=== PATIENT | female | born 1945 | race Caucasian/White ===

== ENCOUNTER 2017-02-04 17:35 | Inpatient (IN) | payer OTHER ==
[~2017-02-04] VITALS: Ht 170.2 cm; Wt 90.8 kg
[~2017-02-04 17:35] MED LIST: ADVAIR 250/501 DISK IH; ASPIRIN81 M2 PO; FISH OIL 1,0001 EAC7 PO; FUROSEMIDE20 MG PO; HYDROCODON-ACE1 EAC7 PO; INCRUSE ELLI62.5 MCG IH; IRON325 MG PO; LIPITOR40 MG PO; LISINOPRIL20 MG PO; LO-DOSE ASPIRIN81 M2 PO; METFORMIN HCL500 MG PO; NEURONTIN300 MG PO; NITROSTAT0.4 MG SL; ONE DAILY1 EAC3 PO; PLAVIX75 MG PO; TYLENOL EXTRA500 MG PO; VENTOLIN HFA18 GM IH
[2017-02-04 19:04] LABS: HEMATOCRIT 29.5 % (36.0-46.0); MCH 18.4 PG (29.0-34.0); MCHC 27.1 G/DL (30.0-36.0); MEAN PLAT.VOLUME 9.2 uM^3 (9.5-12.4); PLATELET COUNT 501 K/uL (156-360); RBC DIS.WIDTH-CV 20.2 % (11.8-14.6); RBC DIS.WIDTH-SD 49.2 % (39-53); RED BLOOD COUNT 4.34 M/uL (3.80-5.20); WHITE BLOOD COUNT 12.1 K/uL (4.1-10.2)
[2017-02-04 19:13] LABS: CHLORIDE 107 mEq/L (99-109); POTASSIUM 4.5 mEq/L (3.7-5.4); SODIUM 139 mEq/L (136-147)
[2017-02-04 19:15] LABS: GLUCOSE 104 mg/dL (70-99)
[2017-02-04 19:16] LABS: ANION GAP 10 MEQ/L (2-14)
[2017-02-04 19:19] LABS: GFR ESTIMATE (CALCULATED) > 59 mL/min/; TROP-I INTERPRETATION NEGATIVE; TROPONIN-I 0.04 ng/mL (0.0-0.30)
[2017-02-04 19:20] LABS: UREA NITROGEN (BUN) 16 mg/dL (9-23)
[2017-02-04 22:12] LABS: IRON 15 MCG/DL (35-150)
[2017-02-04 22:47] LABS: FERRITIN 9 NG/ML (10-291)
[2017-02-04 23:16] VITALS: BP 127/58
[2017-02-04 23:36] VITALS: BP 146/72
[2017-02-04] MEDS ORDERED: VITAMIN B-12500 MC5 SL (23:43)
[2017-02-05] VITALS (8 sets, daily range): BP systolic 96–148; BP diastolic 45–96
[2017-02-05 08:40] LABS: POINT-OF-CARE METER ID UU14188625
[2017-02-05 08:45] LABS: HEMATOCRIT 29.5 % (36.0-46.0); MCH 19.6 PG (29.0-34.0); MCHC 28.1 G/DL (30.0-36.0); MCV 69.6 FL (83-99); RBC DIS.WIDTH-CV 21.7 % (11.8-14.6); RBC DIS.WIDTH-SD 52.7 % (39-53); RED BLOOD COUNT 4.24 M/uL (3.80-5.20); WHITE BLOOD COUNT 9.2 K/uL (4.1-10.2)
[2017-02-05 08:47] LABS: ALKALINE PHOSPHATASE 83 IU/L (3-129); ANION GAP 9 MEQ/L (2-14); CHLORIDE 105 MEQ/L (99-109); GFR ESTIMATE (CALCULATED) > 59 mL/min/; GLUCOSE 109 mg/dL (70-99); POTASSIUM 4.1 MEQ/L (3.7-5.4); SAMPLE HEMOLYSIS CHECK 0; SAMPLE ICTERIC CHECK 0; SAMPLE LIPEMIA CHECK 0; SODIUM 140 MEQ/L (136-147); TOTAL BILIRUBIN 1.1 MG/DL (0.0-1.0); TROP-I INTERPRETATION NEGATIVE; TROPONIN-I 0.05 ng/mL (0.0-0.30); UREA NITROGEN (BUN) 14 mg/dL (9-23)
[2017-02-05 10:14] LABS: ADD MIUA? NO; BILIRUBIN NEGATIVE; BLOOD NEGATIVE; COLOR COLORLESS ((YELLOW)); GLUCOSE (STRIP) NEGATIVE; KETONES NEGATIVE; LEUKOCYTES NEGATIVE; NITRITE NEGATIVE; PROTEIN (STRIP) NEGATIVE; SPECIFIC GRAVITY 1.005 (1.000-1.030); UCUL ADDED? NO; UROBILINOGEN 0.2 MG/DL (0.2-1.0)
[2017-02-05 11:33] LABS: MEAN PLAT.VOLUME 9.2 uM^3 (9.5-12.4); PLATELET COUNT 471 K/uL (156-360)
[2017-02-05 14:58] LABS: TROP-I INTERPRETATION NEGATIVE; TROPONIN-I 0.06 ng/mL (0.0-0.30)
[2017-02-06] VITALS (10 sets, daily range): BP systolic 90–134; BP diastolic 52–67
[2017-02-06 07:16] LABS: ANION GAP 10 MEQ/L (2-14); CHLORIDE 102 MEQ/L (99-109); GFR ESTIMATE (CALCULATED) 58 mL/min/; GLUCOSE 108 mg/dL (70-99); POTASSIUM 4.1 MEQ/L (3.7-5.4); SAMPLE HEMOLYSIS CHECK 0; SAMPLE ICTERIC CHECK 0; SAMPLE LIPEMIA CHECK 0; SODIUM 139 MEQ/L (136-147); UREA NITROGEN (BUN) 19 mg/dL (9-23)
[2017-02-06 12:27] LABS: POINT-OF-CARE METER ID UU14188625
[2017-02-06 21:25] LABS: POINT-OF-CARE METER ID UU14174225
[2017-02-07] VITALS (8 sets, daily range): BP systolic 106–131; BP diastolic 54–84
[2017-02-07 11:32] LABS: BASOPHIL COUNT 0.1 K/uL (0-0.1); EOSINOPHIL (%) 2.7 % (0-5); EOSINOPHIL COUNT 0.4 K/uL (0-0.3); HEMATOCRIT 33.4 % (36.0-46.0); IMMATURE GRANULOCYTE (%) 0.9 % (0.0-0.7); IMMATURE GRANULOCYTE COUNT 0.1 K/uL; INSTRUMENT ABS NEUTROPHIL CT 9.9 K/uL; LYMPHOCYTE COUNT 1.2 K/uL (1.0-2.8); MCH 19.8 PG (29.0-34.0); MCHC 27.8 G/DL (30.0-36.0); MCV 71.1 FL (83-99); MONOCYTE (%) 8.1 % (3-12); NEUTROPHIL (%) 78.1 % (45-76); NEUTROPHIL COUNT 9.9 K/uL (1.8-6.4); NRBC (%) 0.4 /100 WBC (0-0); PLATELET COUNT 505 K/uL (156-360); RBC DIS.WIDTH-CV 22.4 % (11.8-14.6); RBC DIS.WIDTH-SD 53.5 % (39-53); WHITE BLOOD COUNT 12.7 K/uL (4.1-10.2)
[2017-02-07 11:36] LABS: ANION GAP 10 MEQ/L (2-14); CHLORIDE 101 MEQ/L (99-109); GFR ESTIMATE (CALCULATED) > 59 mL/min/; GLUCOSE 122 mg/dL (70-99); POTASSIUM 4.3 MEQ/L (3.7-5.4); SAMPLE HEMOLYSIS CHECK 0; SAMPLE ICTERIC CHECK 0; SAMPLE LIPEMIA CHECK 0; SODIUM 136 MEQ/L (136-147); UREA NITROGEN (BUN) 20 mg/dL (9-23)
[2017-02-07 16:10] LABS: POINT-OF-CARE METER ID UU14174225
[2017-02-07 22:07] LABS: POINT-OF-CARE METER ID UU14174225
[2017-02-08 04:15] VITALS: BP 117/60
[2017-02-08 07:17] VITALS: BP 114/64
[2017-02-08 07:35] LABS: BASOPHIL COUNT 0.1 K/uL (0-0.1); EOSINOPHIL (%) 4.9 % (0-5); EOSINOPHIL COUNT 0.6 K/uL (0-0.3); HEMATOCRIT 34.7 % (36.0-46.0); IMMATURE GRANULOCYTE (%) 0.6 % (0.0-0.7); IMMATURE GRANULOCYTE COUNT 0.1 K/uL; INSTRUMENT ABS NEUTROPHIL CT 8.2 K/uL; LYMPHOCYTE COUNT 1.3 K/uL (1.0-2.8); MCH 19.6 PG (29.0-34.0); MCHC 27.1 G/DL (30.0-36.0); MCV 72.4 FL (83-99); MEAN PLAT.VOLUME 9.7 uM^3 (9.5-12.4); MONOCYTE (%) 9.3 % (3-12); MONOCYTE COUNT 1.1 K/uL (0-0.8); NEUTROPHIL (%) 72.8 % (45-76); NEUTROPHIL COUNT 8.2 K/uL (1.8-6.4); PLATELET COUNT 477 K/uL (156-360); RBC DIS.WIDTH-CV 23.8 % (11.8-14.6); RBC DIS.WIDTH-SD 55.4 % (39-53); RED BLOOD COUNT 4.79 M/uL (3.80-5.20); WHITE BLOOD COUNT 11.3 K/uL (4.1-10.2)
[2017-02-08 07:58] LABS: ANION GAP 11 MEQ/L (2-14); CHLORIDE 105 MEQ/L (99-109); GFR ESTIMATE (CALCULATED) > 59 mL/min/; GLUCOSE 90 mg/dL (70-99); POTASSIUM 4.2 MEQ/L (3.7-5.4); SAMPLE HEMOLYSIS CHECK 0; SAMPLE ICTERIC CHECK 0; SAMPLE LIPEMIA CHECK 0; SODIUM 139 MEQ/L (136-147); UREA NITROGEN (BUN) 19 mg/dL (9-23)
[2017-02-08 11:00] VITALS: BP 104/64
[2017-02-08] MEDS ORDERED: FERROUS SULFAT325 MG PO (11:01)
[2017-02-08] MEDS ORDERED: COLACE100 MG PO (11:05)
[2017-02-08 11:27] LABS: POINT-OF-CARE METER ID UU14188625
== END 2017-02-08 11:55 | disposition home or self-care (01) | DRG 812 ==
LOC: EME 17:35 → EDOF 02-05 00:17 → 5SOUTH 02-05 00:17
PROVIDERS: Emergency Medicine; Hospitalist; Internal Medicine; Physician Assistant Medical
PROC: 30233N1 Transfusion of Nonautologous Red Blood Cells into Peripheral Vein, Percutaneous Approach (ICD-10-PCS; principal; 2017-02-04)
DX: D50.9 Iron deficiency anemia, unspecified (principal); I42.9 Cardiomyopathy, unspecified; I50.22 Chronic systolic (congestive) heart failure; E11.9 Type 2 diabetes mellitus without complications; J44.9 Chronic obstructive pulmonary disease, unspecified; R05 Cough; R06.00 Dyspnea, unspecified; I25.10 Atherosclerotic heart disease of native coronary artery without angina pectoris; I35.0 Nonrheumatic aortic (valve) stenosis; I25.5 Ischemic cardiomyopathy; I25.2 Old myocardial infarction; Z87.891 Personal history of nicotine dependence; Z95.5 Presence of coronary angioplasty implant and graft
CPT/HCPCS: 71020; 71250; 80048; 80053; 81003; 82728; 82948; 83540; 83880; 84466; 84484; 85025; 85027; 86850; 86900; 86901; 86920; 93005; 93306; 93970; 94640; 94640 76; 94760; 94799; 99202; 99281; 99285; J1815; J1940; J7050; P9016; Q0138

== ENCOUNTER 2017-02-21 11:32 | Inpatient (IN) | payer OTHER ==
[~2017-02-21] VITALS: Ht 170.2 cm; Wt 83.7 kg
[~2017-02-21 11:32] MED LIST changes: +COLACE100 MG PO; +FERROUS SULFAT325 MG PO; +VITAMIN B-12500 MC5 SL
[2017-02-21 13:03] LABS: EOSINOPHIL (%) 0 % (0-5); HEMATOCRIT 37.7 % (36.0-46.0); IMMATURE GRANULOCYTE (%) 0.7 % (0.0-0.7); IMMATURE GRANULOCYTE COUNT 0.1 K/uL; INSTRUMENT ABS NEUTROPHIL CT 16.5 K/uL; LYMPHOCYTE COUNT 0.4 K/uL (1.0-2.8); MCH 22.2 PG (29.0-34.0); MCHC 28.9 G/DL (30.0-36.0); MCV 76.6 FL (83-99); MEAN PLAT.VOLUME 9.9 uM^3 (9.5-12.4); MONOCYTE (%) 5.5 % (3-12); NEUTROPHIL (%) 91.2 % (45-76); NEUTROPHIL COUNT 16.5 K/uL (1.8-6.4); PLATELET COUNT 401 K/uL (156-360); RBC DIS.WIDTH-CV 31.2 % (11.8-14.6); RBC DIS.WIDTH-SD 80.3 % (39-53); RED BLOOD COUNT 4.92 M/uL (3.80-5.20)
[2017-02-21 13:04] LABS: WHITE BLOOD COUNT 18.1 K/uL (4.1-10.2)
[2017-02-21 13:11] LABS: CHLORIDE 105 mEq/L (99-109); POTASSIUM 4.4 mEq/L (3.7-5.4); SODIUM 137 mEq/L (136-147)
[2017-02-21 13:13] LABS: GLUCOSE 189 mg/dL (70-99)
[2017-02-21 13:14] LABS: ANION GAP 15 MEQ/L (2-14)
[2017-02-21 13:17] LABS: GFR ESTIMATE (CALCULATED) 58 mL/min/
[2017-02-21 13:18] LABS: UREA NITROGEN (BUN) 20 mg/dL (9-23)
[2017-02-21 13:22] LABS: TROP-I INTERPRETATION NEGATIVE; TROPONIN-I 0.21 ng/mL (0.0-0.30)
[2017-02-21] MEDS ORDERED: CYANOCOBALAM1000 MCG PO (16:48)
[2017-02-21] MEDS ORDERED: COLACE100 MG PO (16:49)
[2017-02-21] MEDS ORDERED: FUROSEMIDE40 MG PO (16:49)
[2017-02-21 17:18] LABS: D-DIMER ELISA 1.06 mg/L FEU (< 0.57)
[2017-02-21 22:00] LABS: BASE EXCESS -5.8 mEq/L (-3 to +3); CARBOXY HGB 2.3 % (0-5); METHEMOGLOBIN 1.2 % (0-1.5); PCO2 29 mm Hg (35-45); PO2 78 mm Hg (80-100)
[2017-02-21 22:01] LABS: COMMENTS - BLOOD GASES C+A+; DEVICE NC; O2 FLOW 4 L/MIN; SITE RR; TOTAL RESP RATE 22 resp/min
[2017-02-21 22:30] VITALS: BP 123/57
[2017-02-21 22:47] VITALS: BP 123/57
[2017-02-21 23:00] VITALS: BP 103/55
[2017-02-21 23:45] VITALS: BP 110/52
[2017-02-22] VITALS (30 sets, daily range): BP systolic 0–160; BP diastolic 0–90
[2017-02-22 00:04] LABS: METH RESISTANT S AUREUS PCR NEGATIVE (NEGATIVE)
[2017-02-22 00:44] LABS: PROBE CHECK PASS; SPECIMEN PROCESSING CONTROL PASS
[2017-02-22 06:22] LABS: HEMATOCRIT 34.2 % (36.0-46.0); MCH 22.1 PG (29.0-34.0); MCHC 28.4 G/DL (30.0-36.0); MCV 77.9 FL (83-99); MEAN PLAT.VOLUME 9.7 uM^3 (9.5-12.4); PLATELET COUNT 355 K/uL (156-360); RBC DIS.WIDTH-CV 30.6 % (11.8-14.6); RED BLOOD COUNT 4.39 M/uL (3.80-5.20); WHITE BLOOD COUNT 21.3 K/uL (4.1-10.2)
[2017-02-22 06:48] LABS: ANION GAP 12 MEQ/L (2-14); CHLORIDE 107 MEQ/L (99-109); GFR ESTIMATE (CALCULATED) > 59 mL/min/; GLUCOSE 169 mg/dL (70-99); POTASSIUM 4.3 MEQ/L (3.7-5.4); SAMPLE HEMOLYSIS CHECK 0; SAMPLE ICTERIC CHECK 0; SAMPLE LIPEMIA CHECK 0; SODIUM 140 MEQ/L (136-147); UREA NITROGEN (BUN) 21 mg/dL (9-23)
[2017-02-22 11:45] LABS: POINT-OF-CARE METER ID UU13113731
[2017-02-22 15:25] LABS: POINT-OF-CARE METER ID UU14174217
[2017-02-22 15:31] LABS: BASE EXCESS -6.3 mEq/L (-3 to +3); BICARBONATE 17.1 mEq/L (22-26); CARBOXY HGB 2.5 % (0-5); METHEMOGLOBIN 1.7 % (0-1.5); PCO2 27 mm Hg (35-45); pH 7.41 (7.35-7.45)
[2017-02-22 15:32] LABS: COMMENTS - BLOOD GASES +C; CONTINUOUS POS AIRWAY PRESSURE 6 cm H2O; DEVICE NIV; FI02 50 %; PO2 148 mm Hg (80-100); PRES. SUPPORT 12 CM/H2O; SITE LR +A; TOTAL RESP RATE 37 resp/min
[2017-02-22 16:13] LABS: CREATINE KINASE 155 IU/L (1-294); TOTAL CK 155 IU/L (1-294)
[2017-02-22 16:16] LABS: CK-MB 5.7 ng/mL (0.0-4.9)
[2017-02-22 16:17] LABS: TROP-I INTERPRETATION POSITIVE; TROPONIN-I 0.99 ng/mL (0.0-0.30)
[2017-02-22 22:09] LABS: POINT-OF-CARE METER ID UU14174217; POINT-OF-CARE USER ID RADDRS44
[2017-02-23] VITALS (24 sets, daily range): BP systolic 99–135; BP diastolic 54–82
[2017-02-23 01:08] LABS: CREATINE KINASE 205 IU/L (1-294); TOTAL CK 205 IU/L (1-294)
[2017-02-23 01:14] LABS: CK-MB 6.8 ng/mL (0.0-4.9)
[2017-02-23 01:19] LABS: TROP-I INTERPRETATION POSITIVE; TROPONIN-I 2.11 ng/mL (0.0-0.30)
[2017-02-23 06:29] LABS: CREATINE KINASE 202 IU/L (1-294); TOTAL CK 202 IU/L (1-294)
[2017-02-23 06:31] LABS: TROP-I INTERPRETATION POSITIVE; TROPONIN-I 7.26 ng/mL (0.0-0.30)
[2017-02-23 07:17] LABS: POINT-OF-CARE METER ID UU14174217
[2017-02-23 07:27] LABS: CK-MB 12.1 ng/mL (0.0-4.9)
[2017-02-23 08:48] LABS: INTERNAL CONTROL VALID? YES
[2017-02-23 09:41] LABS: EOSINOPHIL (%) 0 % (0-5); IMMATURE GRANULOCYTE (%) 0.7 % (0.0-0.7); IMMATURE GRANULOCYTE COUNT 0.2 K/uL; INSTRUMENT ABS NEUTROPHIL CT 22.9 K/uL; LYMPHOCYTE COUNT 0.3 K/uL (1.0-2.8); MCHC 27.6 G/DL (30.0-36.0); MCV 79.6 FL (83-99); MEAN PLAT.VOLUME 10.2 uM^3 (9.5-12.4); MONOCYTE (%) 2.8 % (3-12); MONOCYTE COUNT 0.7 K/uL (0-0.8); NEUTROPHIL (%) 95.1 % (45-76); NEUTROPHIL COUNT 22.9 K/uL (1.8-6.4); PLATELET COUNT 384 K/uL (156-360); RBC DIS.WIDTH-CV 31.6 % (11.8-14.6); RBC DIS.WIDTH-SD 84.7 % (39-53); RED BLOOD COUNT 4.27 M/uL (3.80-5.20)
[2017-02-23 10:13] LABS: ANION GAP 13 MEQ/L (2-14); CHLORIDE 108 MEQ/L (99-109); GFR ESTIMATE (CALCULATED) > 59 mL/min/; GLUCOSE 196 mg/dL (70-99); POTASSIUM 4.1 MEQ/L (3.7-5.4); SAMPLE HEMOLYSIS CHECK 0; SAMPLE ICTERIC CHECK 0; SAMPLE LIPEMIA CHECK 0; SODIUM 139 MEQ/L (136-147); UREA NITROGEN (BUN) 21 mg/dL (9-23)
[2017-02-23 11:40] LABS: ANION GAP 16 MEQ/L (2-14); CHLORIDE 109 MEQ/L (99-109); GFR ESTIMATE (CALCULATED) > 59 mL/min/; GLUCOSE 200 mg/dL (70-99); POTASSIUM 4.4 MEQ/L (3.7-5.4); SODIUM 141 MEQ/L (136-147); UREA NITROGEN (BUN) 21 mg/dL (9-23)
[2017-02-23 12:46] LABS: CK-MB 11.5 ng/mL (0.0-4.9)
[2017-02-23 12:49] LABS: TROP-I INTERPRETATION POSITIVE; TROPONIN-I 4.77 ng/mL (0.0-0.30)
[2017-02-23 13:03] LABS: CREATINE KINASE 153 IU/L (1-294); TOTAL CK 153 IU/L (1-294)
[2017-02-23 14:11] LABS: POINT-OF-CARE METER ID UU14174217
[2017-02-23 16:52] LABS: POINT-OF-CARE METER ID UU14174217
[2017-02-23 22:18] LABS: POINT-OF-CARE METER ID UU14162636; POINT-OF-CARE USER ID RADDRS44
[2017-02-24] VITALS (21 sets, daily range): BP systolic 91–143; BP diastolic 54–77
[2017-02-24 06:28] LABS: GFR ESTIMATE (CALCULATED) > 59 mL/min/
[2017-02-24 09:00] LABS: POINT-OF-CARE METER ID UU14162636
[2017-02-24 12:50] LABS: POINT-OF-CARE METER ID UU13113803
[2017-02-24 17:37] LABS: POINT-OF-CARE METER ID UU14162636
[2017-02-24 22:10] LABS: POINT-OF-CARE METER ID UU14162636; POINT-OF-CARE USER ID RADDRS44
[2017-02-25] VITALS (15 sets, daily range): BP systolic 115–170; BP diastolic 55–97
[2017-02-25 06:32] LABS: GFR ESTIMATE (CALCULATED) > 59 mL/min/
[2017-02-25 08:42] LABS: HEMATOCRIT 35.1 % (36.0-46.0); MCH 22.1 PG (29.0-34.0); MCHC 28.2 G/DL (30.0-36.0); MCV 78.3 FL (83-99); MEAN PLAT.VOLUME 10.2 uM^3 (9.5-12.4); NRBC (%) 0.1 /100 WBC (0-0); PLATELET COUNT 460 K/uL (156-360); RBC DIS.WIDTH-CV 31.8 % (11.8-14.6); RBC DIS.WIDTH-SD 83.1 % (39-53); RED BLOOD COUNT 4.48 M/uL (3.80-5.20)
[2017-02-25 08:45] LABS: WHITE BLOOD COUNT 16.4 K/uL (4.1-10.2)
[2017-02-25 08:47] LABS: ANION GAP 14 MEQ/L (2-14); CHLORIDE 105 MEQ/L (99-109); GLUCOSE 261 mg/dL (70-99); POTASSIUM 4.4 MEQ/L (3.7-5.4); SODIUM 142 MEQ/L (136-147); UREA NITROGEN (BUN) 31 mg/dL (9-23)
[2017-02-25 12:10] LABS: POINT-OF-CARE METER ID UU13113803
[2017-02-26 04:33] VITALS: BP 148/76
[2017-02-26 06:25] LABS: HEMATOCRIT 37.3 % (36.0-46.0); MCHC 28.7 G/DL (30.0-36.0); MCV 76.7 FL (83-99); MEAN PLAT.VOLUME 9.8 uM^3 (9.5-12.4); NRBC (%) 0.6 /100 WBC (0-0); PLATELET COUNT 542 K/uL (156-360); RBC DIS.WIDTH-CV 31.7 % (11.8-14.6); RBC DIS.WIDTH-SD 80.9 % (39-53); RED BLOOD COUNT 4.86 M/uL (3.80-5.20); WHITE BLOOD COUNT 20.3 K/uL (4.1-10.2)
[2017-02-26 06:45] LABS: ANION GAP 13 MEQ/L (2-14); CHLORIDE 105 MEQ/L (99-109); GFR ESTIMATE (CALCULATED) 58 mL/min/; GLUCOSE 219 mg/dL (70-99); POTASSIUM 4.5 MEQ/L (3.7-5.4); SAMPLE HEMOLYSIS CHECK 0; SAMPLE ICTERIC CHECK 0; SAMPLE LIPEMIA CHECK 0; SODIUM 142 MEQ/L (136-147); UREA NITROGEN (BUN) 37 mg/dL (9-23)
[2017-02-26 07:04] LABS: INTERNAL CONTROL VALID? YES
[2017-02-26 07:39] VITALS: BP 132/75
[2017-02-26 12:01] VITALS: BP 152/67
[2017-02-26 15:53] VITALS: BP 135/69
[2017-02-26 16:30] LABS: POINT-OF-CARE METER ID UU13113781
[2017-02-26 19:19] VITALS: BP 149/69
[2017-02-26 20:45] LABS: POINT-OF-CARE METER ID UU13113781
[2017-02-26 23:57] VITALS: BP 135/64
[2017-02-27 04:30] VITALS: BP 136/63
[2017-02-27 07:48] VITALS: BP 136/74
[2017-02-27 08:03] LABS: POINT-OF-CARE METER ID UU13113781
[2017-02-27 11:55] LABS: POINT-OF-CARE METER ID UU13113781
[2017-02-27 12:05] VITALS: BP 152/67
[2017-02-27 15:44] VITALS: BP 146/69
[2017-02-27 20:38] LABS: POINT-OF-CARE METER ID UU14174216
[2017-02-27 21:00] VITALS: BP 164/81
[2017-02-27 23:49] VITALS: BP 153/67
[2017-02-28 03:48] VITALS: BP 119/53
[2017-02-28 06:28] LABS: HEMATOCRIT 36.5 % (36.0-46.0); MCHC 28.2 G/DL (30.0-36.0); MEAN PLAT.VOLUME 9.8 uM^3 (9.5-12.4); NRBC (%) 1.1 /100 WBC (0-0); PLATELET COUNT 554 K/uL (156-360); RBC DIS.WIDTH-CV 31.8 % (11.8-14.6); RBC DIS.WIDTH-SD 82.3 % (39-53); RED BLOOD COUNT 4.68 M/uL (3.80-5.20); WHITE BLOOD COUNT 19.4 K/uL (4.1-10.2)
[2017-02-28 06:59] LABS: ANION GAP 11 MEQ/L (2-14); CHLORIDE 104 MEQ/L (99-109); GFR ESTIMATE (CALCULATED) > 59 mL/min/; SAMPLE HEMOLYSIS CHECK 1; SAMPLE ICTERIC CHECK 0; SAMPLE LIPEMIA CHECK 0; SODIUM 140 MEQ/L (136-147); UREA NITROGEN (BUN) 34 mg/dL (9-23)
[2017-02-28 07:08] LABS: GLUCOSE 109 mg/dL (70-99); POTASSIUM 4.3 MEQ/L (3.7-5.4)
[2017-02-28 07:54] LABS: POINT-OF-CARE METER ID UU14174216
[2017-02-28 09:00] VITALS: BP 126/78
[2017-02-28] MEDS ORDERED: CEFDINIR300 MG PO ×2 (10:55→12:43)
[2017-02-28] MEDS ORDERED: PREDNISONE10 MG PO ×2 (10:55→12:45)
[2017-02-28 11:18] LABS: POINT-OF-CARE METER ID UU14174216
[2017-02-28] MEDS ORDERED: OXYGEN MC (11:19)
[2017-02-28 16:16] VITALS: BP 129/58
== END 2017-02-28 16:49 | disposition home health service (06) | DRG 871 ==
LOC: EME 11:32 → 4WEST 16:19 → 4EAST 16:19 → EDOF 16:19 → 4WEST 22:30 → 4EAST 02-25 17:19
PROVIDERS: Anesthesiology; Emergency Medicine; Hospitalist; Internal Medicine; Internal Medicine Critical Care Medicine; Internal Medicine Nephrology; Physician Assistant; Student in an Organized Health Care Education/Training Program
DX: A41.89 Other specified sepsis (principal); I21.4 Non-ST elevation (NSTEMI) myocardial infarction; J96.01 Acute respiratory failure with hypoxia; R65.21 Severe sepsis with septic shock; A48.1 Legionnaires' disease; I50.23 Acute on chronic systolic (congestive) heart failure; I95.9 Hypotension, unspecified; I27.2 Other secondary pulmonary hypertension; I11.0 Hypertensive heart disease with heart failure; J44.0 Chronic obstructive pulmonary disease with (acute) lower respiratory infection; J44.1 Chronic obstructive pulmonary disease with (acute) exacerbation; J20.9 Acute bronchitis, unspecified; J45.909 Unspecified asthma, uncomplicated; I25.10 Atherosclerotic heart disease of native coronary artery without angina pectoris; Z95.5 Presence of coronary angioplasty implant and graft; D50.9 Iron deficiency anemia, unspecified; E11.9 Type 2 diabetes mellitus without complications; Z79.84 Long term (current) use of oral hypoglycemic drugs; I73.9 Peripheral vascular disease, unspecified; Z87.891 Personal history of nicotine dependence; Y95 Nosocomial condition; I35.0 Nonrheumatic aortic (valve) stenosis; E78.2 Mixed hyperlipidemia
CPT/HCPCS: 36415; 36600; 71010; 71275; 80048; 80048 91; 80202; 82550; 82550 91; 82553; 82565; 82803; 82948; 83605; 83880; 84484; 85025; 85027; 85379; 87040; 87070; 87086; 87205; 87449; 87641; 93005; 94002; 94003; 94640; 94640 76; 94760; 94799; 97530 GO; 99202; 99281; 99285; J0456; J1630; J1644; J1815; J1940; J1956; J2060; J2543; J2920; J2930; J2997; J3370; J7050; J7512

== ENCOUNTER → 2018-04-11 | Outpatient (CLI) | payer MEDICARE, OTHER ==
[~2018-04-11] MED LIST changes: +CEFDINIR300 MG PO; +CYANOCOBALAM1000 MCG PO; +FUROSEMIDE40 MG PO; +OXYGEN MC; +PREDNISONE10 MG PO
== END | disposition home or self-care (01) ==
LOC: CDC 09:26
DX: Z01.810 Encounter for preprocedural cardiovascular examination (principal); I70.25 Atherosclerosis of native arteries of other extremities with ulceration; I49.3 Ventricular premature depolarization
CPT/HCPCS: 93000

== ENCOUNTER 2018-05-14 22:23 | Inpatient (IN) | payer OTHER ==
[~2018-05-14] VITALS: Ht 170.2 cm; Wt 78.7 kg
[~2018-05-14 22:23] MED LIST changes: +ANORO ELLIPTA1 EACH IH; +CILOSTAZOL50 MG PO; +CLOPIDOGREL75 MG PO; +IRON325 M1 PO; +LASIX20 MG PO; +LOPRESSOR25 MG PO; +NEURONTIN600 MG PO; +ONE DAILY FOR1 EAC1 PO; -ONE DAILY1 EAC3 PO; +TRAMADOL HCL50 MG PO
[2018-05-15 11:28] VITALS: BP 144/92
[2018-05-15 17:22] LABS: CARBOXY HGB 1.8 % (0-5); COMMENTS - BLOOD GASES C+; METHEMOGLOBIN 1.2 % (0-1.5); PCO2 41 mm Hg (35-45); PO2 104 mm Hg (80-100)
[2018-05-15 17:23] LABS: BASE EXCESS -5.9 mEq/L (-3 to +3); BICARBONATE 20.2 mEq/L (22-26)
[2018-05-15 17:35] LABS: POTASSIUM 4.2 mEq/L (3.7-5.4)
[2018-05-15 17:44] LABS: CHLORIDE 114 mEq/L (99-109); SODIUM 141 mEq/L (136-147)
[2018-05-15 17:46] LABS: GLUCOSE 181 mg/dL (70-99)
[2018-05-15 17:49] LABS: CREATININE 0.8 mg/dL (0.6-1.3); GFR ESTIMATE (CALCULATED) > 59 mL/min/
[2018-05-15 17:50] LABS: UREA NITROGEN (BUN) 18 mg/dL (9-23)
[2018-05-15 18:03] LABS: TROP-I INTERPRETATION NEGATIVE; TROPONIN-I 0.04 ng/mL (0.0-0.30)
[2018-05-15 18:40] LABS: HEMATOCRIT 37.2 % (36.0-46.0); HEMOGLOBIN 11.7 G/DL (11.9-15.5); MCH 29.2 PG (29.0-34.0); MCHC 31.5 G/DL (30.0-36.0); MCV 92.8 FL (83-99); PLATELET COUNT 309 K/uL (156-360); RBC DIS.WIDTH-CV 14.9 % (11.8-14.6); RBC DIS.WIDTH-SD 50.8 % (39-53); RED BLOOD COUNT 4.01 M/uL (3.80-5.20); WHITE BLOOD COUNT 15.9 K/uL (4.1-10.2)
[2018-05-16] VITALS (9 sets, daily range): BP systolic 77–113; BP diastolic 44–54
[2018-05-16 06:17] LABS: HEMATOCRIT 34.2 % (36.0-46.0); HEMOGLOBIN 10.7 G/DL (11.9-15.5); MCH 29.4 PG (29.0-34.0); MCHC 31.3 G/DL (30.0-36.0); PLATELET COUNT 264 K/uL (156-360); RBC DIS.WIDTH-SD 51.8 % (39-53); RED BLOOD COUNT 3.64 M/uL (3.80-5.20); WHITE BLOOD COUNT 10.8 K/uL (4.1-10.2)
[2018-05-16 06:30] LABS: TROP-I INTERPRETATION NEGATIVE; TROPONIN-I 0.02 ng/mL (0.0-0.30)
[2018-05-16 06:35] LABS: CHLORIDE 107 MEQ/L (99-109); CREATININE 0.7 MG/DL (0.6-1.3); GFR ESTIMATE (CALCULATED) > 59 mL/min/; GLUCOSE 161 mg/dL (70-99); SODIUM 138 MEQ/L (136-147); UREA NITROGEN (BUN) 15 mg/dL (9-23)
[2018-05-16 06:43] LABS: POTASSIUM 5.1 MEQ/L (3.7-5.4)
[2018-05-17] VITALS (7 sets, daily range): BP systolic 90–115; BP diastolic 46–58
[2018-05-18] VITALS (7 sets, daily range): BP systolic 83–1125; BP diastolic 46–75
[2018-05-19] VITALS (7 sets, daily range): BP systolic 79–142; BP diastolic 43–64
[2018-05-20] VITALS: BP 119/58
[2018-05-20 04:00] VITALS: BP 127/57
[2018-05-20 07:45] VITALS: BP 116/53
[2018-05-20 11:01] VITALS: BP 115/58
[2018-05-20] MEDS ORDERED: ELIQUIS5 MG PO (14:45)
== END 2018-05-20 17:21 | disposition home health service (06) | DRG 253 ==
LOC: ENRESERV 22:23 → CANRESERV 22:33 → ENRESERV 22:33 → 2SOUTH 05-15 10:29 → 4EAST 05-15 10:52 → ENRESERV 05-15 13:45 → 2SOUTH 05-15 16:05 → CANRESERV 05-15 17:26 → ENRESERV 05-15 17:26 → 4EAST 05-16 05:01 → ENRESERV 05-16 19:29 → CANRESERV 05-16 19:29 → ENPENDDIS 05-20 → 4EAST 05-20 17:21
PROVIDERS: Surgery
DX: E11.52 Type 2 diabetes mellitus with diabetic peripheral angiopathy with gangrene (principal); I70.263 Atherosclerosis of native arteries of extremities with gangrene, bilateral legs; L97.929 Non-pressure chronic ulcer of unspecified part of left lower leg with unspecified severity; L97.919 Non-pressure chronic ulcer of unspecified part of right lower leg with unspecified severity; I74.3 Embolism and thrombosis of arteries of the lower extremities; I70.0 Atherosclerosis of aorta; I95.1 Orthostatic hypotension; J44.9 Chronic obstructive pulmonary disease, unspecified; I50.9 Heart failure, unspecified; I11.0 Hypertensive heart disease with heart failure; K21.9 Gastro-esophageal reflux disease without esophagitis; I25.10 Atherosclerotic heart disease of native coronary artery without angina pectoris; I35.0 Nonrheumatic aortic (valve) stenosis; E78.5 Hyperlipidemia, unspecified; Z87.891 Personal history of nicotine dependence; I25.2 Old myocardial infarction; Z95.5 Presence of coronary angioplasty implant and graft; Z79.02 Long term (current) use of antithrombotics/antiplatelets; Z90.49 Acquired absence of other specified parts of digestive tract
CPT/HCPCS: 36415; 36600; 80048; 81003; 82533 91; 82948; 84132; 84484; 85025; 85027; 85730; 86850; 86900; 86901; 86920; 93005; 94640; 94760; 94799; A6214; C1725; J0131; J0690; J0744; J1170; J1644; J2405; J2710; J2720; J2920; J3010; J3370; J7040; J7050; J7120; J7512; J7643; S0030